=== PATIENT | female | born 1985 | race Caucasian/White ===

== ENCOUNTER 2022-04-05 17:03 | Outpatient (CLI) | payer BC, SELFPAY ==
[2022-04-05 17:44] LABS: Beta HCG Quantitative < 2.39 mIU/ML
== END 2022-04-05 17:04 | disposition home or self-care (01) ==
LOC: ANHLAB 17:07
PROVIDERS: Visit Provider Obstetrics & Gynecology
DX: N92.6 Irregular menstruation, unspecified (principal)
CPT/HCPCS: 36415; 84702